=== PATIENT | female | born 1975 | race Native Hawaiian/Other Pacific Islander ===

== ENCOUNTER 2022-05-05 10:00 | Outpatient (RCR) | payer OTHER, SELFPAY | END 2022-05-31 11:38 | disposition home or self-care (01) | LOC: HO.PT 10:00 | PROVIDERS: Visit Provider Surgery | DX: N81.6 Rectocele (principal) | CPT/HCPCS: 97112; 97140; 97162 ==

== ENCOUNTER 2023-03-23 13:19 | Outpatient (AMB) | payer OTHER, SELFPAY ==
--- NOTE | 2023-03-23 13:24 | MHC.OFFVIS ---
Intake Vital Signs 03/23/23 13:33 Height 5 ft 6 in Weight 241 lb 4 oz BMI 38.9 BP 120/72 Pulse 87 Pulse Source Pulse Oximeter Pulse Oximetry (%) 97 Oxygen Delivery Method Room Air Intake Visit Reasons: [id number]-Rmktj shoulder pain(Neuropathy) - LVM Intake Note: Patient presents for right pain shoulder is in a lot of pain daily and feeling like is stabbing. Pain wakes her up when sleeping and trouble opening certain objects. Allergies house dust Allergy (Intermediate, Verified 03/23/23 13:32) Hives cortisone Allergy (Mild, Verified 03/23/23 13:32) Rash environmental allergies Allergy (Mild, Verified 03/23/23 13:32) Sneezing Medication List - Last Reconciled 03/23/23 by Xavier Carmona CNP zqaukye-lzj-iadrj-tenof alafen [phone] mg (Genvoya) 1 tab PO DAILY gabapentin mg PO BID naproxen 500 mg PO BID topiramate 50 mg PO BID HPI HPI Comments History of Present Illness Details 47 y/o female patient presents for new in-person visit for evaluation of right shoulder pain. Pt reports that she had a right shoulder injury in 2019 from work. She worked at [employer], two big bins fell onto her right shoulder, neck, and arm when she tried to cover her face with right arm. She was told that her right bicep was torn and had two shoulder surgeries done in 2019 and 2020. Pt reports persistent right shoulder pain, it radiates to right arm and hand. The symptoms are persistent stabbing pain with intermittent right arm numbness and tingling, despite rest, heat, medications, injection therapy, physical therapy. The pain affects sleep, and quality of life. Pt also reports right arm and hand weakness. Pt states that she was evaluated by pain management, tried nerve block, and laser therapy, too. She also tried gabapentin and naproxen, they only relieve pain very short term. She uses Tens unit with minimal pain relieve. Pt reports that EMG scheduled on April,. [facility] Surgical History History of hysterectomy History of cystoscopy History of colposcopy History of esophagogastroduodenoscopy (EGD) History of shoulder surgery Social History Alcohol intake: current Comment: Drinks rarely Patient Tobacco Use Status: Never used Tobacco Review of Systems Const All systems reviewed & are unremarkable except as noted in HPI and below Physical Exam Vital Signs: Last Vital Signs Pulse 87 03/23/23 13:33 BP 120/72 03/23/23 13:33 Pulse Ox 97 03/23/23 13:33 Oxygen Delivery Method Room Air 03/23/23 13:33 BMI result Body Mass Index 38.9 Const Orientation/consciousness: patient oriented x3 Neck Neck: Yes full ROM and Yes supple 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 General: patient oriented x3, gait normal, moves all extremities and CN's II-XI intact bilaterally Cranial nerves: Yes CN's II-XII intact bilaterally Cognition (Neuro): normal cognition Gait exam (Neuro): Normal gait present Motor exam (neuro): Pronator motor function not present and no tremor noted Deep tendon reflexes (DTR's): Rt Biceps (C5, C6): 2+, Left biceps reflex intensity grade: 2+, Right brachioradialis reflex intensity grade: 2+ and Left brachioradialis reflex intensity grade: 2+ Psych Appearance: grossly normal Mental Status: mental status grossly normal Speech and movement: Normal speech and movement present Affect: normal affect Attitude: cooperative Assessment & Plan Assessment & Plan (1) Shoulder pain, right: Code(s): M25.511 - Pain in right shoulder (2) Neuropathy of right upper extremity: Code(s): G56.91 - Unspecified mononeuropathy of right upper limb (3) Headache: Comment: associated with right neck and shoulder pain. Code(s): R51.9 - Headache, unspecified Plan Advised patient to have chest Xray to r/o cervical rib. Advised patient to try amitriptyline 10 mg along with topiramate 50 mg qHS to manage pain, promote sleep and headache prevention. Orders: Orders XR chest 2V 03/23/23 M25.511 - Pain in right shoulder Medications: New topiramate 50 mg PO BEDTIME amitriptyline 10 mg PO BEDTIME 30 days 30 tabs 3RF Coding Level of Care Code New Pt Level 4 (20390) Diagnoses Shoulder pain, right M25.511 Neuropathy of right upper extremity G56.91 Headache R51.9
[2023-03-23 13:33] VITALS: BP 120/72; PULSE 87; O2SAT 97; BMI 38.9
== END 2023-03-23 14:21 | disposition home or self-care (01) ==
PROVIDERS: Visit Provider Nurse Practitioner Family
DX: M25.511 Pain in right shoulder (principal); G56.91 Unspecified mononeuropathy of right upper limb; R51.9 Headache, unspecified
CPT/HCPCS: 99204

== ENCOUNTER → 2023-03-23 13:19 | Outpatient (BNVA) | payer OTHER, SELFPAY | PROVIDERS: Visit Provider Nurse Practitioner Family | DX: M25.511 Pain in right shoulder (principal); G56.91 Unspecified mononeuropathy of right upper limb; R51.9 Headache, unspecified | CPT/HCPCS: 99202 ==

== ENCOUNTER 2023-06-08 09:39 | Outpatient (AMB) | payer OTHER, SELFPAY ==
--- NOTE | 2023-06-08 09:47 | A.OFFVIS_ITS ---
Intake Vital Signs 06/08/23 09:51 Height 5 ft 6 in Weight 236 lb 8 oz BMI 38.2 BP 120/72 Blood Pressure Location Lt brachial Position Sitting Pulse 76 Pulse Source Pulse Oximeter Pulse Oximetry (%) 96 Oxygen Delivery Method Room Air Intake Visit Reasons: WC - 3 mnts - LVM w/address Intake Note: Patient presents for a 3 months F/U. Allergies house dust Allergy (Intermediate, Verified 06/08/23 09:50) Hives cortisone Allergy (Mild, Verified 06/08/23 09:50) Rash environmental allergies Allergy (Mild, Verified 06/08/23 09:50) Sneezing HPI HPI Comments History of Present Illness Details 48 y/o female patient presents for follo w up of right shoulder pain. Pt had a right shoulder injury in 2019 from work. She worked at [employer], two big bins fell onto her right shoulder, neck, and arm when she tried to cover her face with right arm. She was told that her right bicep was torn and had two shoulder surgeries done in 2019 and 2020. Pt reports persistent right shoulder pain, it radiates to right arm and hand. The symptoms are persistent stabbing pain with intermittent right arm numbness and tingling, despite rest, heat, medications, injection therapy, physical therapy. The pain affects sleep, and quality of life. She started amitriptyline 10 mg and it helps her sleep better, but not reduced the pain. EMG/NCS result for right upper extremity was normal study. Chest Xray ordered to r/o cervical rib, but not done yet. Pt states that she was evaluated by pain management, tried nerve block, and laser therapy, too. She also tried gabapentin and naproxen, they only relieve pain very short term. She uses Tens unit with minimal pain relieve. [facility] Surgical History History of hysterectomy History of cystoscopy History of colposcopy History of esophagogastroduodenoscopy (EGD) History of shoulder surgery Social History Alcohol intake: current Comment: Drinks rarely Patient Tobacco Use Status: Never used Tobacco Review of Systems Const All systems reviewed & are unremarkable except as noted in HPI and below Physical Exam Vital Signs: Last Vital Signs Pulse 76 06/08/23 09:51 BP 120/72 06/08/23 09:51 Pulse Ox 96 06/08/23 09:51 Oxygen Delivery Method Room Air 06/08/23 09:51 BMI result Body Mass Index 38.2 Const Orientation/consciousness: patient oriented x3 Neck Neck: Yes full ROM and Yes supple 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 General: patient oriented x3, gait normal, moves all extremities and CN's II-XI intact bilaterally Cranial nerves: Yes CN's II-XII intact bilaterally Cognition (Neuro): normal cognition Gait exam (Neuro): Normal gait present Motor exam (neuro): Pronator motor function not present and no tremor noted Deep tendon reflexes (DTR's): Rt Biceps (C5, C6): 2+, Left biceps reflex intensity grade: 2+, Right brachioradialis reflex intensity grade: 2+ and Left brachioradialis reflex intensity grade: 2+ Psych Appearance: grossly normal Mental Status: mental status grossly normal Speech and movement: Normal speech and movement present Affect: normal affect Attitude: cooperative Assessment & Plan Assessment & Plan (1) Shoulder pain, right: Code(s): M25.511 - Pain in right shoulder (2) Headache: Comment: associated with right neck and shoulder pain. Code(s): R51.9 - Headache, unspecified Plan Advised patient to have chest Xray to r/o cervical rib. Advised patient to try amitriptyline 20 mg along with magnesium 400 mg, topiramate 50 mg qHS to manage pain, promote sleep and headache prevention. Medications: New magnesium oxide 400 mg PO BEDTIME 30 tabs 6RF 30 days Changed From amitriptyline 10 mg PO BEDTIME 30 days 30 tabs 3RF To amitriptyline 20 mg (2 x 10 mg) PO BEDTIME 60 tabs 3RF 30 days Coding Level of Care Code Est Pt Level 4 (19674) Diagnoses Shoulder pain, right M25.511 Headache R51.9
[2023-06-08 09:51] VITALS: BP 120/72; PULSE 76; O2SAT 96; BMI 38.2
== END 2023-06-08 10:15 | disposition home or self-care (01) ==
PROVIDERS: Visit Provider Nurse Practitioner Family
DX: M25.511 Pain in right shoulder (principal); R51.9 Headache, unspecified
CPT/HCPCS: 99214

== ENCOUNTER → 2023-06-08 09:39 | Outpatient (BNVA) | payer OTHER, SELFPAY | PROVIDERS: Visit Provider Nurse Practitioner Family ==

== ENCOUNTER 2024-05-09 12:31 | Outpatient (REF) | payer OTHER, SELFPAY ==
--- NOTE | ~2024-05-09 | XR_ITS ---
EXAMINATION: XR CHEST 2 VIEWS HISTORY: G56.91 - Unspecified mononeuropathy of right upper limb COMPARISON: There are no prior studies for comparison. FINDINGS: PA and lateral views of the chest are submitted. The lungs are expanded and clear. There is no pleural effusion, pneumothorax, or pulmonary vascular congestion. The heart is normal in size. The bones are intact. XR/XR chest 2V IMPRESSION: Normal examination of the chest. Electronically signed by: Jemal Friedman MD 05/09/2024 01:09 PM EDT
--- OUTSIDE RECORDS SUMMARY | 2024-05-09 15:49 | XMS_ITS | Data Portability ---
Author Organization [facility], [address] Address [address] [place] [address] Care Team Providers Care Regulatory Affairs Consultant Name Role Phone [facility] Primary Care Provider Assessment No assessment recorded. Plan of Treatment Reminders Order Date Submit Date Provider Last Modified By Organization Details Last Modified Time Details Appointments None recorded. Lab None recorded. Referral None recorded. Procedures None recorded. Surgeries None recorded. Imaging None recorded. Medication Orders prednisone 20 mg tablet 2022 023 [facility] #[id number], [address] [place], [address], 3 15:01:00 Allergy Relief (fluticason e) 50 mcg/actuati on nasal spray,suspe nsion 2022 023 [id number] [address] [place], [address], 3 15:01:01 Patient TargetsNo targets recorded. Patient Instructions Encounter Date Encounter Id Patient Instructions Last Modified By Organization Details Last Modified Time 06/09/2022 [id number] earache: care instructions Not available 06/09/2022 15:00:58 ear infection (otitis media): care instructions Not available 06/09/2022 15:00:58 Sinusitis is an infection of the lining of the sinus cavities in your head. Sinusitis often follows a cold. It causes pain and pressure in your head and face. In most cases, sinusitis gets better on its own in 1 to 2 weeks. But some mild symptoms may last for several weeks. Sometimes antibiotics are needed. if you are having problems. It's also a good idea to know your test results and keep a list of the medicines you take. How can you care for yourself at home? Take an ibth-ouq-shwxhxj pain medicine. Avoid Ibuprofen, Aleve and Aspirin if . If the doctor prescribed antibiotics, take them as directed. Do not stop taking them just because you feel better. You need to take the full course of antibiotics. Be careful when taking kqyl-moe-pujlpbd cold or influenza (flu) medicines and Tylenol at the same time. Many of these medicines have acetaminophen, which is Tylenol. Read the labels to make sure that you are not taking more than the recommended dose. Too much acetaminophen (Tylenol) can be harmful. Breathe warm, moist air from a steamy shower, a hot bath, or a sink filled with hot water. Avoid cold, dry air. Using a humidifier in your home may help. Follow the directions for cleaning the machine. Use saline (saltwater) nasal washes. This can help keep your nasal passages open and wash out mucus and bacteria. You can buy saline nose drops at a grocery store or drugstore. Or you can make your own at home by adding 1 teaspoon (5 millilitres) of salt and 1 teaspoon (5 millilitres) of baking soda to 2 cups (500 mL) of distilled water. If you make your own, fill a bulb syringe with the solution, insert the tip into your nostril, and squeeze gently. Blow your nose. Put a hot, wet towel or a warm gel pack on your face 3 or 4 times a day for 5 to 10 minutes each time. Try a decongestant nasal spray like oxymetazoline (Drixoral). Do not use it for more than 3 days in a row. Using it for more than 3 days can make your congestion worse. Not available 06/09/2022 15:00:18 Reason for Referral None Reported. 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 Procedures Surgical History Date Name Laterality Status Provider Name and Address Organization Details Recorded Time 02/27/19 21 procedure on shoulder completed MONICASaji JULIENO PA - [facility] 06/09/2022 14:28:22 Partial hysterectomy completed MONICA DEPINTO PA - [facility] 06/09/2022 14:25:43 repair of stress incontinence by suprapubic sling completed MONICA DEPINTO PA - [facility] 06/09/2022 14:29:46 fallopian tube excision completed MONICA DEPINTO PA - [facility] 06/09/2022 14:29:54 Imaging Results None recorded. Procedure Notes None recorded. Medical Equipment None Reported. Allergies Allergen ID Allergen Name Allergen Category Reaction Reaction Severity Criticality Documentation Date Start Date Code Code System Note Provider Name and Address Organization Details Recorded Time 518380 cortisone medicatio n swelling Not available Not available 06/09/2022 2878 RxNorm MONICA GARZAINTO null, PA - [facility] 14:26:02 Medications Name Sig Start Date Stop Date Status Note LastModified by Organization Details LastModified Time acetaminoph en 325 mg tablet TAKE 2 TABLET BY MOUTH EVERY 4 HOURS NEEDED FOR FEVER 06/09 completed Not Available Not Available Not Available senna 8.6 mg tablet TAKE 2 TABLETS BY MOUTH DAILY AT BEDTIME 06/09 completed Not Available Not Available Not Available prednisone 20 mg tablet Take 2 tablets every day by oral route in the morning for 4 days. 2022 active Not Available Not Available Not Avai lable hydromorpho ne 2 mg tablet TAKE 1 TABLET BY MOUTH EVERY 6 HOURS 06/09 completed Not Available Not Available Not Available docusate sodium 100 mg capsule TAKE 1 CAPSULE BY MOUTH TWICE A DAY NEEDED FOR CONSTIPAT ION 06/09 completed Not Available Not Available Not Available bisacodyl 5 mg tablet,juan francisco yed release TAKE 4 TABLETS AT ONCE AT 2 PM THE DAY BEFORE YOUR PROCEDURE 06/09 completed Not Available Not Available Not Available ibuprofen 600 mg tablet TAKE 1 TABLET BY MOUTH 4 TIMES A DAY NEEDED FOR PAIN active Not Available Not Available No t Available naproxen 500 mg tablet TAKE 1 TABLET BY MOUTH 2 TIMES A DAY WITH MEALS active Not Available Not Available No t Available oxycodone 5 mg tablet TAKE 1 TABLET BY MOUTH EVERY 6 HOURS NEEDED FOR PAIN active Not Available Not Available No t Available gabapentin active Not Available Not Av ailable Not Available topiramate active Not Available Not Av ailable Not Available cholecalcif delilah (vitamin D3) 1,250 mcg (50,000 unit) capsule TAKE 1 CAPSULE BY MOUTH EVERY WEEK 06/09 completed Not Available Not Available Not Available Gavilax 17 gram/dose oral powder FOR BOWEL PREP: 238 G, SPLIT BETWEEN TWO (32 OZ) BOTTLES OF GATORADE 06/09 completed Not Available Not Available Not Available Genvoya 150 mg-150 mg-200 mg-10 mg tablet TAKE 1 TABLET BY MOUTH EVERY DAY active Not Available Not Available No t Available Allergy Relief (fluticason e) 50 mcg/actuati on nasal spray,suspe nsion [place] 1 spray every day by intranasa l route as directed for 30 days. 2022 active Not Available Not Available Not Avai lable Vitals Date Recorded Body height Body mass index (BMI) Body weight Pain severity - 0-10 verbal numeric rating [Score] - Reported Respiratory rate Oxygen saturation Oxygen saturation in Arterial blood by Pulse oximetry Heart rate Body temperature Systolic blood pressure Diastolic blood pressure Provider Name and Address Organization Details Last Updated DateTime 3 167.64 cm 35 kg/m2 03761.5 4 g 8 18 /min 97 % 97 % 78 /min 97.7 [degF] 113 mm[Hg] 67 mm[Hg] MONICA DOTSON PA - [facility] 14:31:17 Social History Question Answer Notes LastModified by Organizat ion Details LastModified Time Tobacco Smoking Status Former Smoker MONICA valentine PA - [facility] 06/09/2022 14:28:51 What Is Your Level Of Alcohol Consumption? Occasional Information not available 06/09/2022 How Many Times Per Week Do You Consume Alcohol? Less Than 1 Time Per Week Information not available 06/09/2022 When Did You Quit Smoking? 11-15yearssinc elastcigarette Information not available 06/09/2022 Do You Use Any Illicit Or Recreational Drugs? No Information not available 06/09/2022 Have You Recently Traveled Abroad? No Information not available 06/09/2022 Do You Or Have You Ever Used Any Other Forms Of Tobacco Or Nicotine? No Information not available 06/09/2022 Sex: Unknown Functional Status None recorded. Mental Status None recorded. Family History Relationship Description Onset Age of this Age Resolved Age Notes LastModified by Organization Details LastModified Time Father No current problems or disability Not available 06/09 14:28:25 Mother No current problems or disability Not available 06/09 14:28:25 Medical History No medical history recorded. Gynecological HistoryNo gynecological history recorded. Obstetrics History GPAL:G 0 P 0 0 0 0 Immunizations Vaccine Type Date Status Note Provider Nam e and Address Organization Details Recorded Time COVID-19, mRNA, LNP-S, PF, 30 mcg/0.3 mL dose 10/30/2020 completed MONICA DEPDEE DEEO null, PA - [facility] 06/09/2022 14:25:49 COVID-19, mRNA, LNP-S, PF, 30 mcg/0.3 mL dose 11/20/2020 completed MONICA DEPINTO null, PA - [facility] 06/09/2022 14:25:49 Past Encounters Encounter ID Performer Location Encounter Start Date Encounter Closed Date Diagnosis/Indication Diagnosis SNOMED-CT Code Diagnosis ICD10 Code Diagnosis Note [id number] [address] [place] [address] 11/23/2021 08:24:56 11/23/2021 09:15:28 [id number] [address] [place] [address] 03/19/2020 08:53:36 03/19/2020 10:22:55 [id number] [address] [place] [address] 02/24/2020 14:47:53 02/24/2020 18:42:12 [id number] [address] [place] [address] 01/27/2021 08:18:08 01/27/2021 10:22:45 [id number] [address] [facility] [place] [address] 05/15/2020 09:41:34 05/15/2020 10:37:02 [id number] [address] [facility] [place] [address] 04/15/2020 11:11:23 04/15/2020 12:04:17 [id number] 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, [employer]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 [address] [facility] [place] [address] 06/09/2022 13:46:24 06/09/2022 15:02:26 Acute sinusitis 87184925 J01.90 Health Concerns Section Related Observation LastModified by Organization Detai ls LastModified Time None Recorded Concern Status LastModified by Organization Details LastModified Time None Recorded Advance Directives Directive None Recorded Payers Encounter Date Sequence Insurance Name Policy Number Policy Kc Covered Member ID Kc Member ID Guarantor Name 11/23/2021 1 [facility] (MEDICAID REPLACEMENT - HMO) [id number] Gwen Hernández [id number] Gwen Hernández 06/09/2022 1 [facility] (MEDICAID REPLACEMENT - HMO) [id number] Gwen Hernández [id number] Gwen Hernández Notes Date Note Type Note Provider Name and Address Organization Details Recorded Time 06/09/2022 text/html Sinus Complaints UCReported bypatient.Location: sinus pain;facial pain;sinus pressure Associated Symptoms:no fever; no nausea or vomiting; no sore throat; no ear fullness; no nasal itching; no eye itching; no dizziness;difficult y breathing;Post nasal drip;nasal passage blockage;cough Onset/Timing:worse in am; worse in pm Quality:minimal discomfort;worsenin g; clear Duration:frequent Severity:moderate Context:no recent upper respiratory infection; no recent sick contacts; not worse with seasonal allergen exposure;worse with environmental exposure Risk Factors:no current smoking or tobacco use; no history of nasal trauma Alleviating factors:oral steroids Aggravating factors:worse during an upper respiratory infection (a cold); worse with excess fatigue Prior Treatmentoral decongestant Adam Lay NP [address] [place], [address], PA - [facility] 06/09/2022 15:01:36 OBGyn Episode No OBEpisode recorded.
--- OUTSIDE RECORDS SUMMARY | 2024-05-09 15:49 | XMS_ITS | Continuity of Care Document ---
Author Organization [facility] Address [address] [place] [address]- Care Team Providers Care Director Customer Name Role Phone Juliana COKER, Lanny Primary Care Physician [phone] Encounter [facility] Date(s): 04/04/24 - 05/04/24 [facility] [address] [place] [phone] Encounter Type: Triage Allergies, Adverse Reactions, Alerts Substance Criticality Severity Reaction Reaction Severity Status cortisone Rash cortisone steroid injection Active Dust sneezing, hives Acti ve Other Environmental Allergy sinus infections seasonal Active Mold diarrhea Active Immunizations Given and Recorded Vaccine Date Status Refusal Reason pneumococcal 20-valent conjugate vaccine 12/07/23 Given SARS-CoV-2 (COVID-19) mRNA BNT-162b2 vac 11/20/20 Recorded SARS-CoV-2 (COVID-19) mRNA BNT-162b2 vac 10/30/20 Recorded Measles/Mumps/Rubella/VaricellaVirusVac 1 02/12/18 Given Meningococcal Conjugate Vaccine 02/12/18 Recorded Meningococcal Conjugate Vaccine 2 05/24/17 Given Tet/Diphth/Acel, Pertussis (oldterm) 3 07/19/16 Gi ran pneumococcal 23-valent vaccine 4 05/26/16 Given pneumococcal 23-valent vaccine 5 10/01/10 Given pneumococcal 13-valent vaccine 09/13/12 Given tetanus-diphtheria toxoids (Td) 6 05/07/10 Given influenza virus vaccine, inactivated 7 3/11/11 Gi ran 1Admin Note: Meningococcal Vaccine # 2 2Admin Note: Meningococcal Vaccine # 1 3Admin Note: Tdap 4Admin Note: Pneumococcal Vaccine 23 # 2 5Admin Note: vis given 6Admin Note: vis given 7Admin Note: VIS GIVEN Medications amitriptyline 10 mg oral tablet 60 each, 0 Refill(s), TAKE 2 TABLETS BY MOUTH AT BEDTIME X30 DAYS, Refills 0, 10/20/23 12:36:00 PM EDT, Partial fill upon patient request if the prescription is for a schedule II opioid drug. Start Date: 10/20/23 Status: Ordered Repeat number: 1 diclofenac 1% topical gel = 2 Gm, Topically, 4 times a day, not to exceed 16 grams/day/single joint of lower extremities. notto exceed 8 grams/day/single joint of upper extremities not to exceed 32 grams/day, # 240 Gm, 0 Refills, Maintenance, 10/20/23 12:46:00 PM EDT, Gel, [facility]/pharmacy #[id number], 167.64, cm, 10/20/23 11:46:00 EDT, Height, 106, kg, 08/30/23 13:39:00 EDT, Dry Weight Start Date: 10/20/23 Status: Ordered Quantity: 240.0 Unit: g Repeat number: 1 Indication: Pain in unspecified knee gabapentin 600 mg oral tablet 1 tablet = 600 mg, By Mouth, 2 times a day, # 60 tablet, 5 Refills, Maintenance, 03/30/22 11:01:00 AMEST, Tablet, [facility]/pharmacy #[id number], 167.64, cm, 03/30/22 10:13:00 EST, Height, 105.3, kg, 10/13/21 6:37:00 EDT, Dry Weight Start Date: 03/30/22 Stop Date: 09/26/22 Status: Ordered Quantity: 60.0 Unit: tablet Repeat number: 6 Genvoya oral tablet 1 tablet, By Mouth, Daily, # 30 tablet, 5 Refills, Maintenance, 11/20/23 2:59:00 PM EDT, [facility]/pharmacy #[id number], 30, 1 tablet By Mouth Daily, 167.64, cm, 10/20/23 11:46:00 EDT, Height, 106, kg, 08/30/23 13:39:00 EDT, Dry Weight Start Date: 11/20/23 Status: Ordered Quantity: 30.0 Unit: tablet Repeat number: 6 Heating Pad Heating Pad, See Instructions, # 1 each, Refills 0, Tot. Refills 0, Maintenance, Heating Pad Duration: Lifetime Dx: M25.552, 12/22/23 10:44:00 AM EDT, per instructions for L hip pain, Supply Start Date: 12/22/23 Status: Ordered Quantity: 1.0 Unit: each Repeat number: 1 Hibiclens 4% soap 1 applicator, Topically, Once, as directed. Once., # 240 mL, 0 Refills, Soft Stop, 10/20/23 12:52:00PM EDT, [facility]/pharmacy #[id number], Partial fill upon patient request if the prescription is for a scheduleII opioid drug., 1 applicator Topically Once,Instr:as directed. ; Once., 167.64, cm, 10/20/23 11:46:00 EDT, Height, 106, kg, 08/30/23 13:39:00 EDT, Dry Weight Start Date: 10/20/23 Status: Ordered Quantity: 240.0 Unit: mL Repeat number: 1 Indication: Cutaneous abscess of groin Miscellaneous Rx 0 Refills, 30 each, 0 Refill(s), TAKE 1 TABLET BY MOUTH EVERYDAY AT BEDTIME, 10/20/23 12:36:00 PM EDT Start Date: 10/20/23 Status: Ordered Repeat number: 1 mupirocin 2% topical ointment 1 application, Topically, 3 times a day, apply a thin film to, # 15 Gm, 0 Refills, Acute 10/20/24 12:53:00 PM EDT, 10/20/23 12:53:00 PM EDT, Ointment, [facility]/pharmacy #[id number], Partial fill upon patient request if the prescription is for a schedule II opioid drug., 1 application Topically 3 times a day,Instr:apply a thin film to, 167.64, cm, 10/20/23 11:46:00 EDT, Height, 106, kg, 08/30/23 13:39:00 EDT, Dry Weight Start Date: 10/20/23 Stop Date: 10/20/24 Status: Ordered Quantity: 15.0 Unit: g Repeat number: 1 Indication: Cutaneous abscess of groin naproxen 500 mg oral tablet 1 tablet, By Mouth, 2 times a day with meals, # 60 tablet, 0 Refills, Maintenance, 08/18/22 12:35:00PM EDT, [id number], 167, cm, 07/27/22 14:36:00 EDT, Height, 106.1, kg, 05/02/22 10:05:00 EST, Dry Weight Start Date: 08/18/22 Status: Ordered Quantity: 60.0 Unit: tablet Repeat number: 1 Nexium 40 mg oral enteric coated capsule 1 capsule = 40 mg, By Mouth, 2 times a day, # 90 capsule, 2 Refills, Maintenance, 04/17/23 2:10:00 PM EST, CR Capsule, [facility]/pharmacy #[id number], Partial fill upon patient request if the prescription is for a schedule II opioid drug., 167.64, cm, 04/17/23 13:59:00 EST, Height, 111.9, kg, 04/03/23 11:20:00 EST, Dry Weight Start Date: 04/17/23 Status: Ordered Quantity: 90.0 Unit: capsule Repeat number: 3 topiramate 25 mg oral tablet 2 tablet = 50 mg, By Mouth, 2 times a day, # 120 tablet, 5 Refills, Maintenance, 12/23/21 3:59:00 PM EDT, [facility]/pharmacy #[id number], 167.64, cm, 12/23/21 15:30:00 EDT, Height, 105.3, kg, 10/13/21 6:37:00 EDT, Dry Weight Start Date: 12/23/21 Stop Date: 06/21/22 Status: Ordered Quantity: 120.0 Unit: tablet Repeat number: 6 Tylenol 8 HR Arthritis Pain 650 mg oral tablet, extended release 1 tablet = 650 mg, By Mouth, Every 8 hours, PRN as needed for pain, not to exceed 6 tablets/day, # 50 tablet, 0 Refills, Acute 10/20/24 12:48:00 PM EDT, 10/20/23 12:48:00 PM EDT, ER Tablet, [facility]/pharmacy #[id number], Partial fill upon patient request if the prescription is for a schedule II opioid drug., 167.64, cm, 10/20/23 11:46:00 EDT, Height, 106, kg, 08/30/23 13:39:00 EDT, Dry Weight Start Date: 10/20/23 Stop Date: 10/20/24 Status: Ordered Quantity: 50.0 Unit: tablet Repeat number: 1 Indication: Pain in unspecified knee Problem List Condition Confirmation Course Effective Dates Status H ealth Status Informant Asthma Confirmed Active Chronic pelvic pain in female Confirmed Active Depression Confirmed Active Gastroesophageal reflux disease Confirmed Active Hip pain Confirmed Active 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 Latent tuberculosis infection Confirmed Active Migraine Confirmed Active Obese class II Confirmed Active Care Management [facility] Connects Nestor Menezes [phone] Confirmed Active *MADDY Kern, RN, Nurse Photogrammetric Engineer [facility] 79 Confirmed Active Well woman exam Confirmed Active Rectal bleeding Confirmed Active Umbilical hernia Confirmed Active Vitamin D deficiency Confirmed Active Social History Social History Type Response Smoking Status Former smoker; Stopp ed at age: 33; entered on: 04/17/13 Sex Sex Representation Female (finding) Patient Care team information Care Team Personnel Name: Lanny Andrews MD Position: [facility] Resident Member Role: PCP Address: [address] [place] [address] Telecom: Care Team Related Persons Name: MICHAEL GONSALES Name: ALEN SNEED Name: CYNTHIA ARANDA Insurance Providers Guarantor name: JC GONSALES Health Plan Information #: 1 Payer: [employer] Member Number: NA Policy Number: NA Group Number: NA
--- OUTSIDE RECORDS SUMMARY | 2024-05-09 15:49 | XMS_ITS | Clinical Summary ---
Author Organization [employer] Address [address] [place] [address] Care Team Providers Care Grey Goods Tester Name Role Phone Unavailable Primary Care Provider Unavailabl e Allergies Active Allergy Reactions Criticality Noted Date Comments Cortisone Swelling 10/23/2023 Medications naproxen (Naprosyn) 500 MG tablet Take 1 tablet by mouth with breakfast and with evening meal. Active magnesium oxide (Mag-Ox) 400 MG tablet Take 1 tablet by mouth at bedtime. 4 Active ibuprofen 600 MG tablet TAKE 1 TABLET BY MOUTH 4 TIMES A DAY NEEDED FOR PAIN Active elvitegravir-cob icistat-emtricit abine-tenofovir alafenamide (Genvoya) [phone] MG tablet Take 1 tablet by mouth Once per day. Active acetaminophen (Tylenol 8 Hour) 650 MG ER tablet TAKE 1 TAB BY MOUTH EVERY 8 HOURS NEEDED FOR PAIN.NOT TO EXCEED 6 TABLETS/DAY 4 Active amitriptyline (Elavil) 10 MG tablet 4 Active Active Problems No known active problems Social History Tobacco Use Types Packs/Day Years Used Date Smoking Tobacco: Former Cigarettes Passive Smoke Exposure: Past Tobacco Cessation:Counseling Given: Not Answered Alcohol Use Standard Drinks/Week Comments Yes 0 (1 standard drink = 0.6 oz pur e alcohol) Comments Unknown Sex and Gender Information Value Date Recorded Sex Assigned at Female 12/27/2021 10:26 AM EDT Legal Sex Female 10:26 AM EDT Gender Identity Female 10/20/2023 2:46 PM EDT Sexual Orientation Choose not to disclose 2023 2:46 PM EDT Last Filed Vital Signs Vital Sign Reading Time Taken Comments Blood Pressure 120/82 11/22/2023 1:10 PM EDT Pulse - - Temperature - - Respiratory Rate - - Oxygen Saturation - - Inhaled Oxygen Concentration - - Weight - - Height - - Body Mass Index - - Plan of Treatment Health Maintenance Due Date Last Done Comments CT Colonography 1977 Colonoscopy 1977 Colorectal Cancer Screening 1977 Depression Screening 1977 FIT DNA/Cologuard 1977 FIT 1977 FOBT 1977 HIV Screening 1977 SDOH Screening 1977 Sigmoidoscopy 1977 Meningococcal Vaccine (1 - Risk 2-dose series) 1979 Alcohol/Substance Use Screening 1989 Family Planning (PISQ) 1992 Hepatitis C Screening 1995 DTaP/Tdap/Td Vaccines (1 - Tdap) 1996 Hepatitis A Vaccines (1 of 2 - Risk 2-dose series) 1996 Hepatitis B Vaccines (1 of 3 - 19+ 3-dose series) 1996 Pneumococcal Vaccine: Pediatrics (0 to 5 Years) and At-Risk Patients (6 to 49) Years) (1 of 2 - PCV) 1996 Zoster Vaccines (1 of 2) 1996 Pap Smear 1998 Cervical Cancer Screening 2007 HPV/Cotest 2007 Dental Oral Exam 02/05/2015 08/05/2014, 08/22/2013 Dental Prophylaxis 10/21/2015 04/21/2015, 0 10/17/2014, 04/18/2014, Additional history exists Mammogram 2017 COVID-19 Vaccine (3 - Pfizer risk series) 12/18/2020 11/20/2020, 10/30/2020 Influenza Vaccine (#1) 2023 Tobacco Screening 11/21/2024 11/22/2023 Dental X-Ray: Bitewings 11/22/2024 11/22/19 24, 07/10/2014, 07/09/2013 Dental X-Ray: Full Mouth 11/22/2026 024, 09/25/2013, 07/09/2013 RSV Patients and Patients Aged 60 years or older (1 - 1-dose 75+ series) 2052 HIB Vaccines Aged Out No longer eligi ble based on patient's age to complete this topic HPV Vaccines Aged Out No longer eligi ble based on patient's age to complete this topic IPV Vaccines Aged Out No longer eligi ble based on patient's age to complete this topic RSV under 20 months Aged Out No longe r eligible based on patient's age to complete this topic Rotavirus Vaccines Aged Out No longer eligible based on patient's age to complete this topic Procedures Procedure Name Priority Date/Time Associated Diagnosis Comments INTRAORAL - COMPLETE SERIES OF RADIOGRAPHIC IMAGES Routine 11/22/2023 1:00 PM EDT PROPHYLAXIS - ADULT Routine 04/21/2015 1 2:00 AM EST PERIODIC ORAL EVALUATION - ESTABLISHED PATIENT Routine 08/05/2014 12:00 AM EDT from Last 3 Months or Most Recently Relevant to Health Maintenance Insurance [facility] [employer] [place]
== END 2024-05-09 12:32 | disposition home or self-care (01) ==
LOC: HO.XRAY 12:31
PROVIDERS: Visit Provider Nurse Practitioner Family
DX: G56.91 Unspecified mononeuropathy of right upper limb (principal); R51.9 Headache, unspecified
CPT/HCPCS: 71046

== ENCOUNTER → 2024-05-09 12:36 | Outpatient (BNV) | payer OTHER, SELFPAY | PROVIDERS: Visit Provider Radiology Diagnostic Radiology | DX: G56.91 Unspecified mononeuropathy of right upper limb (principal) | CPT/HCPCS: 71046 ==

== ENCOUNTER 2024-06-04 15:04 | Outpatient (AMB) | payer OTHER, SELFPAY ==
--- NOTE | 2024-06-04 15:05 | MHC.OFFVIS ---
Vital Signs 06/04/24 15:07 Height 5 ft 6 in Weight 254 lb BMI 41.0 BP 112/72 Blood Pressure Location Rt brachial Position Sitting Pulse 75 Pulse Source Pulse Oximeter Pulse Oximetry (%) 97 Oxygen Delivery Method Room Air Intake Visit Reasons: Follow up Intake Note: Patient presents for follow up headaches. trial of magnesium given Allergies house dust Allergy (Intermediate, Verified 06/04/24 15:08) Hives cortisone Allergy (Mild, Verified 06/04/24 15:08) Rash environmental allergies Allergy (Mild, Verified 06/04/24 15:08) Sneezing Medication List - Last Reconciled 06/04/24 by ROSALBA Good amitriptyline 20 mg (2 x 10 mg) PO BEDTIME qxsxdof-ezb-jgxuu-tenof alafen [phone] mg (Genvoya) 1 tab PO DAILY gabapentin mg PO BID magnesium oxide 400 mg PO BEDTIME 30 days naproxen 500 mg PO BID topiramate 50 mg PO BEDTIME HPI Comments Details: Right-handed female presents for follow-up of chronic right shoulder pain. Patient reports she sustained a right shoulder injury in 2018 from work. She worked at [employer], two big bins fell onto her right shoulder, neck, and arm when she tried to cover her face with right arm. She was told that her right bicep was torn and had two shoulder surgeries done in 2019 and 2020. She has not seen orthopedic, [facility], in a few years,a s they referred her to pain management who stated there was nothing else they could do for her. She continues to have constant Right shoulder (in deltoid region but can be more anterior/posterior) pain stabbing pain, which when more severe moves through the right arm and up into the head and triggers a headache, 10/10 pain which may decrease to 6/10 after taking gabapentin and amitriptyline. The right shoulder feels stuck at times with increased movement or RUE supination, and then clicks or shifts, which is uncomfortable- once it clicks it feels a bit better. She does not notice right shoulder swelling or discoloration. Right hand weakness- since the sugergy. Pain is aggravated by activity, driving longer distances, standing/walking too long, supination- more so in upper bicep insertion region. Alleviating factors- leaning back on something. She is having a daily headache- either a typical migarine or the migraine headcahe triggered by her shoulder pain. She also has migraine, which is different from the headache triggered by the right shoulder pain, is pounding headache- location can be bilateral but location depends on the severity a/w photophobia, phonophobia, nausea, activity intolerance. She also reports sinus headaches bifrontal or left frontal a/w milder photophobia and phonophobia, bending over makes her feel like she will fall over. Recent CXR did not show any extra cervical ribs. 2022, RUE EMG/NCS, normal. States medications and injections have not helped- but using gabapentin and amitriptyline 10mg most nights and then in the am if needed. Bedtime is 9-10pm. Does have to wake up to bring her daughter to work at 7am. She has previously done physical therapy, laser therapy, injections-which were ineffective. She has tried marijuana at home, this was not helpful. [facility] Surgical History (Updated 06/04/24 @ 15:51 by ROSALBA Good) History of hysterectomy History of cystoscopy History of colposcopy History of esophagogastroduodenoscopy (EGD) History of shoulder surgery Social History Alcohol intake: current Comment: Drinks rarely Patient Tobacco Use Status: Never used Tobacco Physical Exam Vital Signs: Last Vital Signs Pulse 75 06/04/24 15:07 BP 112/72 06/04/24 15:07 Pulse Ox 97 06/04/24 15:07 Oxygen Delivery Method Room Air 06/04/24 15:07 BMI result Body Mass Index 41.0 Const General: cooperative and no acute distress Orientation/consciousness: patient oriented x3 Resp Effort & Inspection: normal respiratory effort and able to speak in complete sentences Neuro Other: Bilateral right greater than left posterior cervical tightness and tenderness. BLE gross motor strength 5/5, however right hand grasp weaker than left. DTRs 1+ throughout. General: patient oriented x3 Cranial nerves: Yes CN's II-XII intact bilaterally Cognition (Neuro): normal cognition Psych Appearance: grossly normal Mental Status: mental status grossly normal Speech and movement: Normal speech and movement present Affect: normal affect Attitude: cooperative Assessment & Plan Assessment & Plan (1) History of shoulder surgery: Code(s): Z98.890 - Other specified postprocedural states Category: Surgical (2) Shoulder pain, right: Code(s): M25.511 - Pain in right shoulder Category: Medical (3) Migraine without aura: Code(s): G43.009 - Migraine without aura, not intractable, without status migrainosus Category: Medical Plan For right shoulder pain: Reviewed recent chest x-ray report which did not show evidence of cervical rib. XR right shoulder. will request orthopedic consult- as pt now has right shoulder clicking w/ supination/movement. Patient would like alternate opinion. Adjust amitriptyline to 20mg daily at 7pm. Start Baclofen 5mg twice a day prn muscle spasm. Discussed that optimizing her migraine treatment regimen, may help to reduce neck tightness, which may help to reduce right shoulder pain symptoms as well. For chronic migraine: For acute treatment: Trial Sumatriptan 100mg tab, 1/2 - 1 tab (50-100mg) at onset of headache, may repeat in 2 hours. Max of 2 tabs (200mg) per 24 hours. May take sumatriptan with OTC Tylenol 650-1,000mg every 4-6 hours, Ibuprofen (liquid gels) 600mg every 6 hours, or Naproxen (liquid gels) 440mg q 12 hrs prn. Potential adverse effects of triptans, include but are not limited to nausea, fatigue, chest tightness/tingling (usually passes within a few minutes), medication overuse headaches. For migraine prevention: Start Propranolol IR 10 mg. Potential side effects include but are not limited to fatigue, lightheadedness, low blood pressure, low heart rate, asthma/respiratory disease exacerbation, weight gain, hair loss, sexual dysfunction. Resume topiramate 50 mg daily at bedtime. Continue magnesium oxide 400 mg at bedtime. Will follow-up upon review of above and patient to follow-up in clinic in 2 months or sooner prn. Orders: Orders XR shoulder RT min 2V 06/04/24 M25.511 - Pain in right shoulder, Z98.890 - Other specified postprocedural states Referrals Orthopedics Referral Z98.890 - Other specified postprocedural states, M25.511 - Pain in right shoulder Medications: New baclofen 5 - 10 mg (1 - 2 x 5 mg) PO DAILY PRN 60 tabs 3RF muscle spasm 30 days propranolol 10 mg PO BID 60 tabs 1RF migraine prevention 30 days G43.009 - Migraine without aura, not intractable, without status migrainosus sumatriptan succinate 50 - 100 mg orally at onset of headache, may repeat in 2 hrs PRN; max 2 tabs per day or 4 tabs/week (may take with Ibuprofen) 12 tabs 6RF migraine headache 30 days Changed From amitriptyline 20 mg (2 x 10 mg) PO BEDTIME 60 tabs 3RF To amitriptyline at 7pm 20 mg (2 x 10 mg) PO DAILY 60 tabs 6RF 30 days From topiramate 50 mg PO BEDTIME To topiramate 50 mg (2 x 25 mg) PO BEDTIME 60 tabs 3RF 30 days Coding Level of Care Code Est Pt Level 4 (03922) Diagnoses History of shoulder surgery Z98.890 Shoulder pain, right M25.511 Migraine without aura G43.009
[2024-06-04 15:07] VITALS: BP 112/72; PULSE 75; O2SAT 97; BMI 41.0
--- OUTSIDE RECORDS SUMMARY | 2024-06-04 18:09 | XMS_ITS | Data Portability ---
Author Organization [facility] [address] Address [address] [place] [address] Care Team Providers Care Data Services Developer Name Role Phone [facility] Primary Care Provider Assessment No assessment recorded. Plan of Treatment Reminders Order Date Submit Date Provider Last Modified By Organization Details Last Modified Time Details Appointments None recorded. Lab None recorded. Referral None recorded. Procedures None recorded. Surgeries None recorded. Imaging None recorded. Medication Orders prednisone 20 mg tablet 2022 023 [facility]/Pharmacy #[id number], [address] [place], [address], 3 15:01:00 Allergy Relief (fluticason e) 50 mcg/actuati on nasal spray,suspe nsion 2022 023 [id number] [address] [place], [address], 3 15:01:01 Patient TargetsNo targets recorded. Patient Instructions Encounter Date Encounter Id Patient Instructions Last Modified By Organization Details Last Modified Time 06/09/2022 [id number] earache: care instructions Not available 06/09/2022 15:00:58 [...] care for yourself at home? Take an tazj-gez-qybwmso pain medicine. Avoid Ibuprofen, Aleve and Aspirin if . If the doctor prescribed antibiotics, take them as directed. Do not stop taking them just because you feel better. You need to take the full course of antibiotics. 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 2022 MONICA DEPINTO null, [place] - [...] Name and Address Organization Details Recorded Time 430061 cortisone medicatio n swelling Not available Not [...] e) 50 mcg/actuati on nasal spray,suspe nsion [place] 1 spray every day by intranasa l [...] Updated DateTime 3 167.64 cm 35 kg/m2 35254.5 4 g 8 18 /min 97 % 97 % 78 /min 97.7 [degF] 113 mm[Hg] 67 mm[Hg] MONICA DOTSON [place] - [facility] 14:31:17 Social History Question Answer Notes LastModified by Organizat ion Details LastModified Time Tobacco Smoking Status Former Smoker MONICA vaelntine [place] - [facility] 06/09/2022 14:28:51 What [...] SNOMED-CT Code Diagnosis ICD10 Code Diagnosis Note [id number] [address] [place] [address] 11/23/2021 08:24:56 11/23/2021 09:15:28 [id number] [address] [place] [address] 03/19/2020 08:53:36 03/19/2020 10:22:55 [id number] [address] [place] [address] 02/24/2020 14:47:53 02/24/2020 18:42:12 [id number] [address] [place] [address] 01/27/2021 08:18:08 01/27/2021 10:22:45 [id number] [address] [facility] [place] [address] 05/15/2020 09:41:34 05/15/2020 10:37:02 [id number] [address] [facility] [place] [address] 04/15/2020 11:11:23 04/15/2020 12:04:17 [id number] Adam Lay, HORTICULTURE/FLORICULTURE TEACHER [address] [facility] [place] [address] 06/09/2022 13:46:24 06/09/2022 15:02:26 Acute sinusitis [id number] J01.90 Health Concerns Section Related Observation LastModified by Organization Detai ls LastModified Time None Recorded Concern Status LastModified by Organization Details LastModified Time None Recorded Advance Directives Directive None Recorded Payers Encounter Date Sequence Insurance Name Policy Number Policy Kc Covered Member ID Kc Member ID Guarantor Name 11/23/2021 1 [facility] (MEDICAID REPLACEMENT - HMO) [id number] Gwen Hernández [id number] Gwen Hernández 06/09/2022 1 [facility] (MEDICAID REPLACEMENT - HMO) [id number] Gwen Hernández [id number] Gwen Hernández Notes Date Note Type Note [...] Lay NP [address] [place], [address], [place] - [facility] 06/09/2022 15:01:36 OBGyn Episode No OBEpisode recorded.
--- OUTSIDE RECORDS SUMMARY | 2024-06-04 18:09 | XMS_ITS | Clinical Summary ---
Author Organization [employer] Address [address] [facility] [address] [place] [address] Care Team Providers Care Oven Heater Helper Name Role Phone Unavailable Primary Care Provider [...] PAIN Active elvitegravir-cob icistat-emtricit abine-tenofovir alafenamide (Genvoya) [phone] MG tablet Take 1 tablet by mouth [...]
== END 2024-06-04 16:22 | disposition home or self-care (01) ==
LOC: HO.HSMS 15:05
PROVIDERS: Visit Provider Nurse Practitioner Family
DX: Z98.890 Other specified postprocedural states (principal); M25.511 Pain in right shoulder; G43.009 Migraine without aura, not intractable, without status migrainosus
CPT/HCPCS: 99214

== ENCOUNTER 2024-08-09 07:40 | Outpatient (AMB) | payer OTHER, SELFPAY ==
[2024-08-09 07:44] VITALS: BP 116/74; PULSE 83; O2SAT 97; BMI 38.1
--- NOTE | 2024-08-09 07:44 | A.OFFVIS_ITS ---
Vital Signs 08/09/24 07:44 Height 5 ft 6 in Weight 236 lb 6 oz BMI 38.1 BP 116/74 Blood Pressure Location Lt brachial Position Sitting Pulse 83 Pulse Source Pulse Oximeter Pulse Oximetry (%) 97 Oxygen Delivery Method Room Air Intake Visit Reasons: 2 mo follow up Intake Note: Patient presents 2 month follow up for migraines. Patient states migraines are little bit better, both in frequency of migraine and pain lower. Allergies house dust Allergy (Intermediate, Verified 08/09/24 07:47) Hives cortisone Allergy (Mild, Verified 08/09/24 07:47) Rash environmental allergies Allergy (Mild, Verified 08/09/24 07:47) Sneezing Medication List - Last Reconciled 08/09/24 by ROSALBA Good baclofen 5 - 10 mg (1 - 2 x 5 mg) PO DAILY PRN 30 days zszwhfq-cwv-ezzyw-tenof alafen [phone] mg (Genvoya) 1 tab PO DAILY magnesium oxide 400 mg PO BEDTIME 30 days naproxen 500 mg PO BID propranolol 10 mg PO BID 30 days sumatriptan succinate 50 - 100 mg orally at onset of headache, may repeat in 2 hrs PRN; max 2 tabs per day or 4 tabs/week (may take with Ibuprofen) 30 days topiramate 50 mg (2 x 25 mg) PO BEDTIME 30 days HPI Comments Details: Right-handed female presents for follow-up of migraine and chronic right shoulder pain. Pt reports she started sumatriptan and propranolol, which initially she did not tolerate it. However, over time, she has started to tolerate it better and it has helped to reduce the migraine attack. However, she is prone to lightheadedness. She states her migraines are still occurring daily, but not as severe- does not have to completely lay down in a dark/quiet space. She stopped Amitriptyline, as it was worsening her mood- and since stopping her mood has improved. She states she is continuing to have right shoulder pain. Today she notes that in addition to the right shoulder sharp apin w/ movement, she has right shoulder pain triggered by weather changes, cold or wind blowing on her shoulder (ie cannot have the ac blowing on her shoulder as this causes increased pain- would have to have wear a sweater to protect the arm). Sometimes has BUE R > L swelling. She denies RUE skin color changes. She has been scheduled to see ortho in the beginning of August- at [facility]. She states she has done PT many times and it has not been helpful. 06/04/2024, Previous HPI: Patient reports she sustained a right shoulder injury in 2019 from work. She worked at [employer], two big bins fell onto her right shoulder, neck, and arm when she tried to cover her face with right arm. She was told that her right bicep was torn and had two shoulder surgeries done in 2019 and 2020. She has not seen orthopedic, [facility], in a few years,a s they referred her to pain management who stated there was nothing else they could do for her. She continues to have constant Right shoulder (in deltoid region but can be more anterior/posterior) pain stabbing pain, which when more severe moves through the right arm and up into the head and triggers a headache, 10/10 pain which may decrease to 6/10 after taking gabapentin and amitriptyline. The right shoulder feels stuck at times with increased movement or RUE supination, and then clicks or shifts, which is uncomfortable- once it clicks it feels a bit better. She does not notice right shoulder swelling or discoloration. Right hand weakness- since the surgery. Pain is aggravated by activity, driving longer distances, standing/walking too long, supination- more so in upper bicep insertion region. Alleviating factors- leaning back on something. She is having a daily headache- either a typical migraine or the migraine headache triggered by her shoulder pain. She also has migraine, which is different from the headache triggered by the right shoulder pain, is pounding headache- location can be bilateral but location depends on the severity a/w photophobia, phonophobia, nausea, activity intolerance. She also reports sinus headaches bifrontal or left frontal a/w milder photophobia and phonophobia, bending over makes her feel like she will fall over. Recent CXR did not show any extra cervical ribs. 2022, RUE EMG/NCS, normal. States medications and injections have not helped- but using gabapentin and amitriptyline 10mg most nights and then in the am if needed. Bedtime is 9-10pm. Does have to wake up to bring her daughter to work at 7am. She has previously done physical therapy, laser therapy, injections-which were ineffective. She has tried marijuana at home, this was not helpful. [facility] Surgical History History of hysterectomy History of cystoscopy History of colposcopy History of esophagogastroduodenoscopy (EGD) History of shoulder surgery Social History Alcohol intake: current Comment: Drinks rarely Patient Tobacco Use Status: Never used Tobacco Physical Exam Vital Signs: Last Vital Signs Pulse 83 08/09/24 07:44 BP 116/74 08/09/24 07:44 Pulse Ox 97 08/09/24 07:44 Oxygen Delivery Method Room Air 08/09/24 07:44 BMI result Body Mass Index 38.1 Const General: cooperative and no acute distress Orientation/consciousness: patient oriented x3 Resp Effort & Inspection: normal respiratory effort and able to speak in complete sentences Neuro Other: Bilateral right greater than left posterior cervical tightness and tenderness. Negative empty can test Bilateral limited shoulder range of motion, more so on the right BUE and BLE gross motor strength 5/5, however right hand grasp weaker than left. DTRs 1+ throughout. General: patient oriented x3 Cranial nerves: Yes CN's II-XII intact bilaterally Cognition (Neuro): normal cognition Psych Appearance: grossly normal Mental Status: mental status grossly normal Speech and movement: Normal speech and movement present Affect: normal affect Attitude: cooperative Assessment & Plan Assessment & Plan (1) Migraine without aura: Code(s): G43.009 - Migraine without aura, not intractable, without status migrainosus Category: Medical (2) Shoulder pain, right: Code(s): M25.511 - Pain in right shoulder Category: Medical Qualifiers: Chronicity: chronic Qualified Code(s): M25.511 - Pain in right shoulder; G89.29 - Other chronic pain (3) History of shoulder surgery: Code(s): Z98.890 - Other specified postprocedural states Category: Surgical Plan For right shoulder pain: * Previously reviewed recent chest x-ray report which did not show evidence of cervical rib. * Patient again advised to have XR right shoulder at [facility] * Patient advised to undergo RUE EMG/NCS * Orthopedic consult as ordered- as pt now has right shoulder clicking w/ supination/movement. Patient would like alternate opinion. * May use baclofen 5 mg twice a day as needed for muscle spasm * Patient has discontinued amitriptyline 20 mg daily order due to mood changes. * Discussed that optimizing her migraine treatment regimen, may help to reduce neck tightness, which may help to reduce right shoulder pain symptoms as well. For chronic migraine: For acute treatment: * Continue Sumatriptan 100mg tab, 1/2 - 1 tab (50-100mg) at onset of headache, may repeat in 2 hours. Max of 2 tabs (200mg) per 24 hours. * May take sumatriptan with OTC Tylenol 650-1,000mg every 4-6 hours, Ibuprofen (liquid gels) 600mg every 6 hours, or Naproxen (liquid gels) 440mg q 12 hrs prn. For migraine prevention: * Continue Propranolol IR 10 mg twice a day- can not increase further due to causes lightheadedness. * Continue topiramate 50 mg daily at bedtime- not fully effective after greater than 3 months, would not increase further due to current RUE paresthesias. * Continue magnesium oxide 400 mg at bedtime. * Start Ajovy 225mg/1.5ml autoinjector- injection 225mg subcutaneously once a month. Potential adverse effects of Ajovy include but are not limited to injection site reactions. Pt advised Ajovy will likely require insurance prior authorization. Ajovy should be refrigerated until 1 hr prior use. Advise that she be refrigerated up to 1 hour before prior to injection. Once approved and available patient would likely prefer in investigation officer injection training. * Previous trials: Amitriptyline 20 mg times greater than 2 months caused mood irritability. Will follow-up upon review of above and patient to follow-up in clinic in 3-6 months or sooner prn. Orders: Orders NE electromyogram (EMG) Today G56.91 - Unspecified mononeuropathy of right upper limb, M25.511 - Pain in right shoulder, Z98.890 - Other specified postprocedural states NE nerve conduction velocity Today G56.91 - Unspecified mononeuropathy of right upper limb, M25.511 - Pain in right shoulder, Z98.890 - Other specified postprocedural states Medications: New fremanezumab-vfrm (Ajovy) administer 225mg sc q month 225 mg (1.5 mL) subcut ONCE 1.5 mL 6RF 30 days Discontinued amitriptyline at 7pm Discontinued Reason: Doctor's Order 20 mg (2 x 10 mg) PO DAILY 30 days 60 tabs 6RF Coding Level of Care Code Est Pt Level 4 (57300) Diagnoses Migraine without aura G43.009 Chronic right shoulder pain M25.511; G89.29 Chronicity: chronic History of shoulder surgery Z98.890
== END 2024-08-09 08:31 | disposition home or self-care (01) ==
LOC: HO.HSMS 07:41
PROVIDERS: Visit Provider Nurse Practitioner Family
DX: G43.009 Migraine without aura, not intractable, without status migrainosus (principal); M25.511 Pain in right shoulder; G89.29 Other chronic pain; Z98.890 Other specified postprocedural states
CPT/HCPCS: 99214

== ENCOUNTER → 2024-08-09 07:40 | Outpatient (BNVA) | payer OTHER, SELFPAY | PROVIDERS: Visit Provider Nurse Practitioner Family ==

== ENCOUNTER 2024-08-28 11:52 | Outpatient (REF) | payer OTHER, SELFPAY ==
--- NOTE | ~2024-08-28 | XR_ITS ---
EXAMINATION: XR SHOULDER 2 OR MORE VIEWS RIGHT HISTORY: M25.511 - Pain in right shoulder COMPARISON: There are no prior studies available for comparison. FINDINGS: Four views of the right shoulder are submitted. Osseous mineralization is normal. There is no fracture or dislocation. The glenohumeral joint is maintained. There is mild degenerative change of the AC joint. The soft tissues are unremarkable. XR/XR shoulder RT min 2V IMPRESSION: Mild degenerative change of the AC joint. Electronically signed by: Jemal Friedman MD 08/28/2024 12:28 PM EDT
--- OUTSIDE RECORDS SUMMARY | 2024-08-28 12:38 | XMS_ITS | Data Portability ---
Author Organization [facility], [address] Address [address] [place] [address] Care Team Providers Care Post Doctoral Fellow Name Role Phone [facility] Primary Care Provider Assessment No assessment recorded. Plan of Treatment Reminders Order Date Submit Date Provider Last Modified By Organization Details Last Modified Time Details Appointments None recorded. Lab None recorded. Referral None recorded. Procedures None recorded. Surgeries None recorded. Imaging None recorded. Medication Orders prednisone 20 mg tablet 2022 023 [facility] #[id number], [address] [place], [address], 3 15:01:00 Allergy Relief (fluticason e) 50 mcg/actuati on nasal spray,suspe nsion 2022 023 [id number] [address] [place], [address], 3 15:01:01 Patient TargetsNo targets recorded. Patient Instructions Encounter Date Encounter Id Patient Instructions Last Modified By Organization Details Last Modified Time 06/09/2022 [id number] earache: care instructions Not available 06/09/2022 15:00:58 [...] care for yourself at home? Take an fros-the-mvlzezt pain medicine. Avoid Ibuprofen, Aleve and Aspirin if . If the doctor prescribed antibiotics, take them as directed. Do not stop taking them just because you feel better. You need to take the full course of antibiotics. 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 Procedures Surgical History Date Name Laterality Status Provider Name and Address Organization Details Recorded Time 02/27/19 21 procedure on shoulder completed MONICA JULIENO PA - [facility] 06/09/2022 14:28:22 Partial hysterectomy completed MONICA KAYLAINTO PA - [facility] 06/09/2022 14:25:43 repair [...] Name and Address Organization Details Recorded Time 437687 cortisone medicatio n swelling Not available Not available 06/09/2022 [address] [facility] MONICA valentine, [place] - [facility] 14:26:02 Medications Name [...] e) 50 mcg/actuati on nasal spray,suspe nsion [place] 1 spray every day by intranasa l route as directed for 30 days. 2022 active Not Available Not Available Not Avai lable Vitals Date Recorded Body height Body mass index (BMI) Body weight Respiratory rate Oxygen saturation Oxygen saturation in Arterial blood by Pulse oximetry Heart rate Body temperature Systolic blood pressure Diastolic blood pressure Provider Name and Address Organization Details Last Updated DateTime 3 167.64 cm 35 kg/m2 70058.5 4 g 18 /min 97 % 97 % 78 /min 97.7 [degF] 113 mm[Hg] 67 mm[Hg] MONICA DOTSON PA - [facility] 3 14:31:17 Social History Question Answer Notes LastModified by [employer] Details LastModified Time Tobacco Smoking Status Former Smoker MONICA valentine [place] - [facility] 06/09/2022 14:28:51 When Did You Quit Smoking? 11-15yearssi ncmaxmie gamez Information not available 06/09/2022 Have You Recently Traveled Abroad? No Information not available 06/09/2022 Sex: Unknown Functional Status Question Answer Note LastModified by [employer] Details LastModified Time How many times per week do you consume alcohol? Less than 1 time per week Information not available 06/09/2022 Do you use any illicit or recreational drugs? No Information not available 06/09/2022 Do you or have you ever used any other forms of tobacco or nicotine? No Information not available 06/09/2022 What is your level of alcohol consumption? Occasional Information not available 06/09/2022 Mental Status None recorded. Family History Relationship [...] 30 mcg/0.3 mL dose 10/30/2020 completed MONICA DEPINTO null, PA - [facility] 06/09/2022 14:25:49 COVID-19, mRNA, LNP-S, PF, 30 mcg/0.3 mL dose 11/20/2020 completed MONICA DEPINTO null, [place] - [facility] 06/09/2022 14:25:49 Past Encounters Encounter ID Performer Location Encounter Start Date Encounter Closed Date Diagnosis/Indication Diagnosis SNOMED-CT Code Diagnosis ICD10 Code Diagnosis Note [id number] [address] [facility] [place] [address] 11/23/2021 08:24:56 11/23/2021 09:15:28 [id number] [address] [place] [address] 03/19/2020 08:53:36 03/19/2020 10:22:55 [id number] [address] [place] [address] 02/24/2020 14:47:53 02/24/2020 18:42:12 [id number] [address] [place] [address] 01/27/2021 08:18:08 01/27/2021 10:22:45 [id number] [address] [place] [address] 05/15/2020 09:41:34 05/15/2020 10:37:02 [id number] [address] [place] [address] 04/15/2020 11:11:23 04/15/2020 12:04:17 [id number] Adamanne-marie Lay, [employer] [address] [place] [address] 06/09/2022 13:46:24 06/09/2022 15:02:26 Acute sinusitis 24222275 J01.90 Health Concerns Section Related Observation LastModified by Organization Detai ls LastModified Time None Recorded Concern Status LastModified by Organization Details LastModified Time None Recorded Advance Directives Directive None Recorded Payers Insurance Date Sequence Insurance Name Policy Number Policy Kc Covered Member ID Kc Member ID Guarantor Name 06/09/2022 1 [facility] (MEDICAID REPLACEMENT - [facility] [id number] Gwen Hernández [id number] Gwen Hernández Notes Date Note Type Note [...] Prior Treatmentoral decongestant Adam Lay NP [address] [place], [address], [place] - [facility] 06/09/2022 15:01:36 OBGyn Episode No OBEpisode recorded.
== END 2024-08-28 11:53 | disposition home or self-care (01) ==
LOC: HO.XRAY 11:52
PROVIDERS: Visit Provider Nurse Practitioner Family
DX: M25.511 Pain in right shoulder (principal); Z98.890 Other specified postprocedural states
CPT/HCPCS: 73030

== ENCOUNTER → 2024-08-28 11:56 | Outpatient (BNV) | payer OTHER, SELFPAY | PROVIDERS: Visit Provider Radiology Diagnostic Radiology | DX: M25.511 Pain in right shoulder (principal) | CPT/HCPCS: 73030 ==

== ENCOUNTER 2024-09-10 10:31 | Outpatient (AMB) | payer OTHER, SELFPAY ==
--- NOTE | 2024-09-10 10:36 | MHC.OFFVIS ---
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 Patient reports ongoing pain, clicking and limited ROM since the injury. 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 She was seen with Neurology who ordered an XR and referred to our office. Patient was told that her right bicep was torn and had two shoulder surgeries done in 2019 and 2020. She expresses that she has tried physical therapy, surgery, laser injections, cannabis, and medications with no relief. She is having ongoing sharp pain in her shoulder and a clicking sensation when she moves her arm a certain way. Patient would like to know if one of her screws in her shower is pinching a nerve. IMPRESSION: Mild degenerative change of the AC joint. Allergies house dust Allergy (Intermediate, Verified 09/10/24 10:49) Hives cortisone Allergy (Mild, Verified 09/10/24 10:49) Rash environmental allergies Allergy (Mild, Verified 09/10/24 10:49) Sneezing HPI HPI DOLLY PUSHER- Right shoulder pain s/p , WC DOI 01/26/19: Details: Ms. Hernández is a 49-year-old right-hand dominant female who presents to the office today for evaluation of a right shoulder injury that occurred on 01/26/2019. She states that she was at work when a bunch of bins fell hitting her right shoulder. The patient was seen at [facility] and participated in physical therapy. She failed physical therapy and therefore was scheduled for a right shoulder biceps tenodesis, SAD/DCE on 10/09/[address] Abrams. After the surgery the patient did participate in physical therapy but had poor tolerance and progression to postop arthrofibrosis. On 11/12/2020 Dr. Abrams performed a right shoulder arthroscopy with extensive glenohumeral debridement and arthroscopic lysis of adhesions. Despite the 2nd procedure accompanied by additional physical therapy the patient continues to have pain in the right shoulder. With the patient presents to the office today she reports that she has pain that travels throughout the entire right upper extremity into her neck and into her head causing extreme migraines. She is prone to migraines and does see neurology and sleep here at [facility]. In addition, she is pending EMG of the right upper extremity. [facility] Surgical History History of hysterectomy History of cystoscopy History of colposcopy History of esophagogastroduodenoscopy (EGD) History of shoulder surgery Social History (Updated 09/10/24 @ 10:46 by Luba Hernández) Alcohol intake: current Comment: Drinks rarely Patient Tobacco Use Status: Never used Tobacco Current occupational status: unemployed Current occupation: right hand dominant Review of Systems Const All systems reviewed & are unremarkable except as noted in HPI and below Physical Exam Vital Signs: BMI result Body Mass Index 37.1 Const General: cooperative, healthy appearing and no acute distress Resp Effort & Inspection: normal respiratory effort and able to speak in complete sentences Extrem Other: Right shoulder lacking about 10 degrees of forward flexion. Lacking 20 degrees of abduction. Pain with cross-body reach. 3/5 strength with empty can. Negative drop arm. Reports numbness and tingling occasionally throughout the entire right upper extremity. Radial pulse intact. Assessment & Plan Assessment & Plan (1) History of shoulder surgery: Code(s): Z98.890 - Other specified postprocedural states Category: Surgical (2) Shoulder pain, right: Code(s): M25.511 - Pain in right shoulder Category: Medical Qualifiers: Chronicity: chronic Qualified Code(s): M25.511 - Pain in right shoulder; G89.29 - Other chronic pain (3) Chronic right shoulder pain: Code(s): M25.511 - Pain in right shoulder; G89.29 - Other chronic pain Category: Medical Plan Ms. Hernández is a 49-year-old right-hand dominant female who presents to the office today for evaluation of a right shoulder injury that occurred on 01/26/2019. She states that she was at work when a bunch of bins fell hitting her right shoulder. The patient was seen at [facility] and participated in physical therapy. She failed physical therapy and therefore was scheduled for a right shoulder biceps tenodesis, SAD/DCE on 10/09/[address] Abrams. After the surgery the patient did participate in physical therapy but had poor tolerance and progression to postop arthrofibrosis. On 11/12/2020 Dr. Abrams performed a right shoulder arthroscopy with extensive glenohumeral debridement and arthroscopic lysis of adhesions. Despite the 2nd procedure accompanied by additional physical therapy the patient continues to have pain in the right shoulder. The patient presents to the office today she reports that she has pain that travels throughout the entire right upper extremity into her neck and into her head causing extreme migraines. She is prone to migraines and does see neurology and sleep here at [facility]. In addition, she is pending EMG of the right upper extremity. While in the office today, we discussed the role of additional MRI imaging for any possible postoperative changes or new findings to evaluate the integrity of the shoulder and surrounding structures. I understand the patient is pending an EMG with Dr. Cancino to evaluate any neurological component. It is possible that the patient has developed complex regional pain syndrome. She does state that she has had an increase in sensitivity over the shoulder and even with light sensation or the sensation of a brace she feels pain in the right shoulder. She also experiences neuropathic pain in the right upper extremity. She feels weakness in the right upper extremity with accompanied stiffness. I have tentatively requested the patient to schedule an appointment with Dr. Cancino. However, I would like to follow up with the patient after the imaging studies have been obtained, sooner if needed. X-rays of the right shoulder which were obtained on 08/28/2024, revealed mild degenerative changes of the AC joint otherwise unremarkable. Orders: Orders MR shoulder RT wo con Today G89.29 - Other chronic pain, M25.511 - Pain in right shoulder, Z98.890 - Other specified postprocedural states Coding Level of Care Code New Pt Level 4 (66622) Diagnoses History of shoulder surgery Z98.890 Chronic right shoulder pain M25.511; G89.29 Chronicity: chronic Chronic right shoulder pain M25.511; G89.29
[2024-09-10 10:45] VITALS: BMI 37.1
--- OUTSIDE RECORDS SUMMARY | 2024-09-10 11:45 | XMS_ITS | Data Portability ---
Author Organization [facility], [address] Address [address] [place] [address] Care Team Providers Care Train Planner Name Role Phone [facility] Primary Care Provider Assessment No assessment recorded. Plan of Treatment Reminders Order Date Submit Date Provider Last Modified By Organization Details Last Modified Time Details Appointments None recorded. Lab None recorded. Referral None recorded. Procedures None recorded. Surgeries None recorded. Imaging None recorded. Medication Orders prednisone 20 mg tablet 2022 023 [facility]/Pharmacy #[id number], [address] [place], [address], 3 15:01:00 Allergy Relief (fluticason e) 50 mcg/actuati on nasal spray,suspe nsion 2022 023 [id number] [address] [place], [address], 3 15:01:01 Patient TargetsNo targets recorded. Patient Instructions Encounter Date Encounter Id Patient Instructions Last Modified By Organization Details Last Modified Time 06/09/2022 [id number] earache: care instructions Not available 06/09/2022 15:00:58 [...] care for yourself at home? Take an lrpo-gph-ebeawch pain medicine. Avoid Ibuprofen, Aleve and Aspirin if . If the doctor prescribed antibiotics, take them as directed. Do not stop taking them just because you feel better. You need to take the full course of antibiotics. 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 2022 active Not Available Not Available Not Avai lable Vitals Date Recorded Body height Body mass index (BMI) Body weight Respiratory rate Oxygen saturation Oxygen saturation in Arterial blood by Pulse oximetry Heart rate Body temperature Systolic And Diastolic Provider Name and Address Organization Details Last Updated DateTime 3 167.64 cm 35 kg/m2 30836.5 4 g 18 /min 97 % 97 % 78 /min 97.7 [degF] 113/67 mm[Hg] MONICA DOTSON [place] - [facility] 3 14:31:17 Social History Question Answer Notes LastModified by [employer] Details LastModified Time Tobacco Smoking Status Former Smoker MONICA valentine [place] - [facility] 06/09/2022 14:28:51 When Did You Quit Smoking? 11-15yearssi ncelaststan gamez Information not available 06/09/2022 Have You Recently Traveled Abroad? No Information not available 06/09/2022 Sex: Unknown Functional Status Question Answer Note LastModified by [employer] Details LastModified Time How many times per [...] SNOMED-CT Code Diagnosis ICD10 Code Diagnosis Note [id number] [address] [place] [address] 11/23/2021 08:24:56 11/23/2021 09:15:28 [id number] [address] [place] [address] 03/19/2020 08:53:36 03/19/2020 10:22:55 [id number] [address] [place] [address] 02/24/2020 14:47:53 02/24/2020 18:42:12 [id number] [address] [place] [address] 01/27/2021 08:18:08 01/27/2021 10:22:45 [id number] [address] [place] [address] 05/15/2020 09:41:34 05/15/2020 10:37:02 [id number] [address] [place] [address] 04/15/2020 11:11:23 04/15/2020 12:04:17 [id number] Adam Alireza, CLUB MANAGER [address] [place] [address] 06/09/2022 13:46:24 06/09/2022 15:02:26 Acute sinusitis [id number] J01.90 Health Concerns Section Related Observation LastModified by Organization Detai ls LastModified Time None Recorded Concern Status LastModified by Organization Details LastModified Time None Recorded Advance Directives Directive None Recorded Payers Insurance Date Sequence Insurance Name Policy Number Policy Kc Covered Member ID Kc Member ID Guarantor Name 06/09/2022 1 [facility] [place]AC[place] [facility] [place] [id number] Gwen Hernández [id number] Gwen Hernández Notes Date Note Type Note [...] Lay NP [address] [place], [address], [place] - [facility] 06/09/2022 15:01:36 OBGyn Episode No OBEpisode recorded.
== END 2024-09-10 11:18 | disposition home or self-care (01) ==
LOC: HO.HOS 10:32
PROVIDERS: Visit Provider Physician Assistant
DX: M25.511 Pain in right shoulder (principal); Z98.890 Other specified postprocedural states; G89.29 Other chronic pain
CPT/HCPCS: 99203

== ENCOUNTER 2024-10-07 19:03 | Outpatient (REF) | payer OTHER, SELFPAY ==
--- NOTE | ~2024-10-07 | MR_ITS ---
CLINICAL HISTORY: Z98.890 - Other specified postprocedural states Exam: MRI of the right shoulder without intravenous contrast. Comparison: Radiographs August 28, 2024. Findings: No rotator cuff tears are identified. No significant tendinopathy of the rotator cuff. No tears of the glenoid labrum. The tendon of the long head of the biceps is appropriately positioned within the bicipital groove. Type 1 acromion. Mild degenerative change of the AC joint. Small amount of fluid within the subacromial/subdeltoid space. Impression: 1. No rotator cuff or labral tear. 2. 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 This document has been electronically signed by: Davy Wiggins MD on 10/09/2024 08:48:11
== END 2024-10-07 19:04 | disposition home or self-care (01) ==
LOC: HO.MRI 19:03
PROVIDERS: Visit Provider Physician Assistant
DX: M25.511 Pain in right shoulder (principal); G89.29 Other chronic pain; Z98.890 Other specified postprocedural states
CPT/HCPCS: 73221

== ENCOUNTER → 2024-10-07 19:03 | Outpatient (BNV) | payer OTHER, SELFPAY | PROVIDERS: Visit Provider Radiology Diagnostic Radiology | DX: M75.51 Bursitis of right shoulder (principal) | CPT/HCPCS: 73221 ==

== ENCOUNTER 2024-12-24 11:38 | Outpatient (AMB) | payer OTHER, SELFPAY ==
--- NOTE | 2024-12-24 11:45 | MHC.OFFVIS ---
Intake Visit Reasons: MRI review right shoulder Intake Note: Gwen is a 49 year old right hand dominant female who presents today for a MRI review of her right shoulder. Patient reports still having a lot of pain. She is not able to lift her arm up or do any over head reaching. Impression: 1. No rotator cuff or labral tear. 2. 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 Allergies house dust Allergy (Intermediate, Verified 12/24/24 11:50) Hives cortisone Allergy (Mild, Verified 12/24/24 11:50) Rash environmental allergies Allergy (Mild, Verified 12/24/24 11:50) Sneezing HPI HPI MRI review right shoulder: Details: Ms. Hernández is a 49-year-old right-hand dominant female who presents to the office today for MRI review of the right shoulder She reports that her injury that occurred on 01/26/2019. She states that she was at work when a bunch of bins fell hitting her right shoulder. The patient was seen at [facility] and participated in physical therapy. She failed physical therapy and therefore was scheduled for a right shoulder biceps tenodesis, SAD/DCE on 10/09/[address] Abrams. After the surgery the patient did participate in physical therapy but had poor tolerance and progression to postop arthrofibrosis. On 11/12/2020 Dr. Abrams performed a right shoulder arthroscopy with extensive glenohumeral debridement and arthroscopic lysis of adhesions. Despite the 2nd procedure accompanied by additional physical therapy the patient continues to have pain in the right shoulder. With the patient presents to the office today she reports that she has pain that travels throughout the entire right upper extremity into her neck and into her head causing extreme migraines. She is prone to migraines and does see neurology and [place] here [place] [facility] She recently had an EMG of the right upper extremity. [facility] Surgical History History of hysterectomy History of cystoscopy History of colposcopy History of esophagogastroduodenoscopy (EGD) History of shoulder surgery Social History Alcohol intake: current Comment: Drinks rarely Patient Tobacco Use Status: Never used Tobacco Current occupational status: unemployed Current occupation: right hand dominant Review of Systems Const All systems reviewed & are unremarkable except as noted in HPI and below Physical Exam Const General: cooperative, healthy appearing and no acute distress Resp Effort & Inspection: normal respiratory effort and able to speak in complete sentences Extrem Other: Right shoulder lacking about 10 degrees of forward flexion. Lacking 20 degrees of abduction. Pain with cross-body reach. 3/5 strength with empty can. Negative drop arm. Reports numbness and tingling occasionally throughout the entire right upper extremity. Radial pulse intact. Assessment & Plan Assessment & Plan (1) Shoulder pain, right: Code(s): M25.511 - Pain in right shoulder Category: Medical Qualifiers: Chronicity: chronic Qualified Code(s): M25.511 - Pain in right shoulder; G89.29 - Other chronic pain Plan Ms. Hernández is a 49-year-old right-hand dominant female who presents to the office today for MRI review of the right shoulder She reports that her injury that occurred on 01/26/2019. She states that she was at work when a bunch of bins fell hitting her right shoulder. The patient was seen at [facility] and participated in physical therapy. She failed physical therapy and therefore was scheduled for a right shoulder biceps tenodesis, SAD/DCE on 10/09/[address] Abrams. After the surgery the patient did participate in physical therapy but had poor tolerance and progression to postop arthrofibrosis. On 11/12/2020 Dr. Abrams performed a right shoulder arthroscopy with extensive glenohumeral debridement and arthroscopic lysis of adhesions. Despite the 2nd procedure accompanied by additional physical therapy the patient continues to have pain in the right shoulder. With the patient presents to the office today she reports that she has pain that travels throughout the entire right upper extremity into her neck and into her head causing extreme migraines. She is prone to migraines and does see neurology and sleep here [place] [facility] She recently had an EMG of the right upper extremity. While in the office today, I reviewed the right shoulder MRI that was obtained on 10/09/2024 with the patient. The results of the MRI were benign with only mild AC joint degenerative changes with subacromial bursitis. No rotator cuff tear. From an orthopedic standpoint, I do not have much else to offer this patient except continuation of physical therapy. I would like the patient to be evaluated by Dr. Cancino for the possibility of CRPS to the right upper extremity. A referral has been placed in the office today. Lastly, I have sent a prescription for a topical pain cream to the [facility] pharmacy to see if this assists with the patient's pain. Coding Level of Care Code Est Pt Level 3 (64305) Diagnoses Chronic right shoulder pain M25.511; G89.29 Chronicity: chronic
== END 2024-12-24 12:03 | disposition home or self-care (01) ==
LOC: HO.HOS 11:39
PROVIDERS: Visit Provider Physician Assistant
DX: M25.511 Pain in right shoulder (principal); G89.29 Other chronic pain
CPT/HCPCS: 99213

== ENCOUNTER 2024-12-31 10:48 | Outpatient (AMB) | payer OTHER, SELFPAY ==
--- NOTE | 2024-12-31 10:59 | A.OFFVIS_ITS ---
Intake Visit Reasons: 3-6 mo follow up Intake Note: Patient presents 2 month follow up for migraines. Patient states migraines are little bit better, both in frequency of migraine and pain lower. Allergies house dust Allergy (Intermediate, Verified 12/24/24 11:50) Hives cortisone Allergy (Mild, Verified 12/24/24 11:50) Rash environmental allergies Allergy (Mild, Verified 12/24/24 11:50) Sneezing HPI Comments Details: Right-handed female presents for follow-up of migraine and chronic right shoulder pain status-post a work-related injury in 2019.. She had [facility] ortho consult forchronic right shoulder pain, who felt that recent RUE EMG/NCS was normal and right shoulder MRI was reassuring and referred her to physiatry for eval of possible CRPS. She continues to have chronic right shoulder pain and intermittent limited ROM, with intermittent shoulder clicking and pressure like the shoulder will pop. Then the pain increases to 100/100 after the pop/clunk, then the pain subsides some, say to a 75/100. She continues to have right upper arm swelling, mild redness, skin sensitivity. She states she cannot quite explain it, but it is different than the pressure/popping/clunking right shoulder pain. Blowing cold air against her RUE still makes her arm feel like it will explode She states that after last visit, she was feeling more depressed because of her chronic pain symptoms despite taking so many medications, so she had stopped the most of these medications, other than scheduled topiramate and as-needed sumatriptan. However her pain in headaches did not improve or decrease after this. Before this, she took Ajovy once, which did help some, but she states her insurance denied continued coverage. She states the migraine headaches neck discomfort are always present, especially with the constant right shoulder pain. The sumatriptan does help when the migraine is more severe. 08/09/2024, HPI: Pt reports she started sumatriptan and propranolol, which initially she did not tolerate it. However, over time, she has started to tolerate it better and it has helped to reduce the migraine attack. However, she is prone to lightheadedness. She states her migraines are still occurring daily, but not as severe- does not have to completely lay down in a dark/quiet space. She stopped Amitriptyline, as it was worsening her mood- and since stopping her mood has improved. She states she is continuing to have right shoulder pain. Today she notes that in addition to the right shoulder sharp pain w/ movement, she has right shoulder pain triggered by weather changes, cold or wind blowing on her shoulder (ie cannot have the ac blowing on her shoulder as this causes increased pain- would have to have wear a sweater to protect the arm). Sometimes has BUE R > L swelling. She denies RUE skin color changes. She has been scheduled to see ortho in the beginning of August- at [facility]. She states she has done PT many times and it has not been helpful. 06/04/2024, Previous HPI: Patient reports she sustained a right shoulder injury in 2018 from work. She worked at [employer], two big bins fell onto her right shoulder, neck, and arm when she tried to cover her face with right arm. She was told that her right bicep was torn and had two shoulder surgeries done in 2019 and 2020. She has not seen orthopedic, [facility], in a few years,a s they referred her to pain management who stated there was nothing else they could do for her. She continues to have constant Right shoulder (in deltoid region but can be more anterior/posterior) pain stabbing pain, which when more severe moves through the right arm and up into the head and triggers a headache, 10/10 pain which may decrease to 6/10 after taking gabapentin and amitriptyline. The right shoulder feels stuck at times with increased movement or RUE supination, and then clicks or shifts, which is uncomfortable- once it clicks it feels a bit better. She does not notice right shoulder swelling or discoloration. Right hand weakness- since the surgery. Pain is aggravated by activity, driving longer distances, standing/walking too long, supination- more so in upper bicep insertion region. Alleviating factors- leaning back on something. She is having a daily headache- either a typical migraine or the migraine headache triggered by her shoulder pain. She also has migraine, which is different from the headache triggered by the right shoulder pain, is pounding headache- location can be bilateral but location depends on the severity a/w photophobia, phonophobia, nausea, activity intolerance. She also reports sinus headaches bifrontal or left frontal a/w milder photophobia and phonophobia, bending over makes her feel like she will fall over. Recent CXR did not show any extra cervical ribs. 2022, RUE EMG/NCS, normal. States medications and injections have not helped- but using gabapentin and amitriptyline 10mg most nights and then in the am if needed. Bedtime is 9-10pm. Does have to wake up to bring her daughter to work at 7am. She has previously done physical therapy, laser therapy, injections-which were ineffective. She has tried marijuana at home, this was not helpful. [facility] Surgical History History of hysterectomy History of cystoscopy History of colposcopy History of esophagogastroduodenoscopy (EGD) History of shoulder surgery Social History Alcohol intake: current Comment: Drinks rarely Patient Tobacco Use Status: Never used Tobacco Current occupational status: unemployed Current occupation: right hand dominant Physical Exam Const General: cooperative and no acute distress Orientation/consciousness: patient oriented x3 Resp Effort & Inspection: normal respiratory effort and able to speak in complete sentences Neuro General: patient oriented x3 Cranial nerves: Yes CN's II-XII intact bilaterally Cognition (Neuro): normal cognition Gait exam (Neuro): Normal gait present Psych Appearance: grossly normal Mental Status: mental status grossly normal Speech and movement: Normal speech and movement present Affect: normal affect Attitude: cooperative Assessment & Plan Assessment & Plan (1) Shoulder pain, right: Code(s): M25.511 - Pain in right shoulder Category: Medical Qualifiers: Chronicity: chronic Qualified Code(s): M25.511 - Pain in right shoulder; G89.29 - Other chronic pain (2) History of shoulder surgery: Code(s): Z98.890 - Other specified postprocedural states Category: Surgical (3) Chronic right shoulder pain: Code(s): M25.511 - Pain in right shoulder; G89.29 - Other chronic pain Category: Medical (4) Chronic migraine without aura without status migrainosus, not intractable: Code(s): G43.709 - Chronic migraine without aura, not intractable, without status migrainosus Category: Medical Plan For right shoulder pain: * Start alpha lipoic acid 600 mg daily- to reduce neuralgic pain * Start duloxetine 30 mg daily- to reduce neuralgic pain, migraine headaches, and depressive symptoms * Reviewed possible side effects, including but not limited due worsening mood. Advised to notify us with any untoward effects. * Previously reviewed recent chest x-ray report which did not show evidence of cervical rib. * Reviewed right shoulder XR: Mild degenerative change of the AC joint. * Reviewed right shoulder MRI: * No rotator cuff or labral tear. * Mild AC joint DJD with subacromial/subdeltoid bursitis. * Reviewed RUE EMG/NCS: Normal exam * Follow-up with orthopedics as scheduled * Physiatry consult as ordered- for evaluation of possible chronic regional pain syndrome and right shoulder clicking w/ supination/movement. * Discussed that optimizing her migraine treatment regimen, may help to reduce neck tightness, which may help to reduce right shoulder pain symptoms as well. * Previous trials: Baclofen 5 mg twice a day was ineffective. Amitriptyline 20 mg daily cause be changes. * Future considerations: Retrying physical therapy, trying a nerve reprocessing cognitive therapy. For chronic migraine: For acute treatment: * Continue Sumatriptan 100mg tab, 1/2 - 1 tab (50-100mg) at onset of headache, may repeat in 2 hours. Max of 2 tabs (200mg) per 24 hours. * May take sumatriptan with OTC Tylenol 650-1,000mg every 4-6 hours, Ibuprofen (liquid gels) 600mg every 6 hours, or Naproxen (liquid gels) 440mg q 12 hrs prn. For migraine prevention: * Start riboflavin 400 mg daily in the morning * Start Co Q10 400 mg daily in the morning, taken with a higher fat food, such as an egg or avocado peanut butter. * Continue topiramate 50 mg daily at bedtime- not fully effective after greater than 3 months, would not increase further due to current RUE paresthesias. * Resume magnesium oxide 400 mg at bedtime. * Resume Ajovy 225mg/1.5ml autoinjector- three 225 mg injections (675 mg) every 90 days. As patient did have decreased in migraine symptoms after taking 1 dose, however full effect is not fully known, as she only took the 1 dose. * It looks like Ajovy have been improved between July and October 2024, and thus only requires a Prior authorization renewal. * Potential adverse effects of Ajovy include but are not limited to injection site reactions. Pt advised Ajovy will likely require insurance prior authorization. * Ajovy should be refrigerated until 1 hr prior use. * Previous trials: Amitriptyline 20 mg times greater than 2 months caused mood irritability. Propranolol IR 10 mg twice a day was ineffective and caused lightheadedness. She may stagger starting the above recommended treatments, every few days, so that she can monitor for tolerance issues. She is encouraged to reach out to us with any untoward effects or difficulty receiving any of the above medication orders. Will follow-up upon review of above and patient to follow-up in clinic in 3-6 months or sooner prn. Medications: New riboflavin (vitamin B2) in am 400 mg PO DAILY 30 tabs 3RF 30 days G43.009 - Migraine without aura, not intractable, without status migrainosus alpha lipoic acid 600 mg PO DAILY 30 caps 11RF 30 days coenzyme Q10 Daily in a.m.. Take with higher fat food 400 mg PO DAILY 30 caps 11RF 30 days G43.009 - Migraine without aura, not intractable, without status migrainosus duloxetine 30 mg PO DAILY 30 caps 6RF 30 days G43.009 - Migraine without aura, not intractable, without status migrainosus, G89.29 - Other chronic pain, M25.511 - Pain in right shoulder Changed From fremanezumab-vfrm (Ajovy) administer 225mg sc q month. PA Approved 08/16/24-11/16/24 225 mg (1.5 mL) subcut ONCE 30 days 1.5 mL 6RF migraines G43.009 - Migraine without aura, not intractable, without status migrainosus To fremanezumab-vfrm (Ajovy) 675 mg (4.5 mL) subcut O9INOPPF 4.5 mL 3RF migraines 3 months G43.009 - Migraine without aura, not intractable, without status migrainosus Refilled magnesium oxide 400 mg PO BEDTIME 30 tabs 11RF 30 days sumatriptan succinate 50 - 100 mg orally at onset of headache, may repeat in 2 hrs PRN; max 2 tabs per day or 4 tabs/week (may take with Ibuprofen) 12 tabs 6RF migraine headache 30 days Discontinued baclofen Discontinued Reason: Doctor's Order 5 - 10 mg (1 - 2 x 5 mg) PO DAILY 30 days PRN 60 tabs 3RF muscle spasm propranolol Discontinued Reason: Doctor's Order 10 mg PO BID 30 days 60 tabs 3RF migraine prevention G43.009 - Migraine without aura, not intractable, without status migrainosus Coding Level of Care Code Est Pt Level 4 (26433) Diagnoses Chronic right shoulder pain M25.511; G89.29 Chronicity: chronic History of shoulder surgery Z98.890 Chronic right shoulder pain M25.511; G89.29 Chronic migraine without aura without status migrainosus, not intractable G43.709
== END 2024-12-31 11:40 | disposition home or self-care (01) ==
LOC: HO.HSMS 10:48
PROVIDERS: Visit Provider Nurse Practitioner Family
DX: M25.511 Pain in right shoulder (principal); G89.29 Other chronic pain; Z98.890 Other specified postprocedural states; G43.709 Chronic migraine without aura, not intractable, without status migrainosus
CPT/HCPCS: 99214